=== PATIENT | male | born 1985 | race Caucasian/White ===

== ENCOUNTER 2021-12-27 17:42 | Emergency (ER) | payer OTHER ==
[~2021-12-27] VITALS: Ht 188 cm; Wt 90.7 kg
[2021-12-27] MEDS ORDERED: REMERON30 MG PO (17:55)
[2021-12-27] MEDS ORDERED: LAMICTAL200 MG PO (18:12)
[2021-12-27] MEDS ORDERED: METHOCARBAMOL500 MG PO (18:30)
[2021-12-27] MEDS ORDERED: IBU600 MG PO (18:30)
== END 2021-12-27 18:47 | disposition home or self-care (01) ==
LOC: ED 17:42
DX: S16.1XXA Strain of muscle, fascia and tendon at neck level, initial encounter (principal); W18.30XA Fall on same level, unspecified, initial encounter; Z79.899 Other long term (current) drug therapy
CPT/HCPCS: 71046; 72040; 99283-25